=== PATIENT | female | born 1970 | race Caucasian/White ===

== ENCOUNTER 2023-03-26 22:20 | Emergency (ER) | payer OTHER ==
[~2023-03-26] VITALS: Ht 165.1 cm; Wt 74.8 kg
[2023-03-26 22:21] VITALS: BP 128/80; PULSE 72; RESP 16; TEMP 97.4; O2SAT 97
[2023-03-26] MEDS ORDERED: KETOROLAC 15 MG/ML VIAL IM ONE (23:45)
[2023-03-26] MEDS ORDERED: NAPR-54 PO (23:46)
[2023-03-27 00:03] VITALS: BP 102/74; PULSE 64; RESP 18; TEMP 97.4; O2SAT 98
== END 2023-03-27 00:03 | disposition home or self-care (01) ==
LOC: MED 22:20
DX: S92.515A Nondisplaced fracture of proximal phalanx of left lesser toe(s), initial encounter for closed fracture (principal); I10 Essential (primary) hypertension; Z79.899 Other long term (current) drug therapy; W21.9XXA Striking against or struck by unspecified sports equipment, initial encounter; Y93.89 Activity, other specified; Y92.89 Other specified places as the place of occurrence of the external cause; Y99.8 Other external cause status
CPT/HCPCS: 73660; 96372; 99283; J1885